=== PATIENT | male | born 1980 | race Caucasian/White ===

== ENCOUNTER 2017-09-01 19:12 | Emergency (ER) ==
[2017-09-01 19:16] VITALS: BP 164/96; TEMP 98.4; BMI 25.8
--- NOTE | 2017-09-01 19:59 | ED.PDOC ---
General ED Provider: Dr. JAVY CASTILLO-ER Chief Complaint: Respiratory Complaint Stated Complaint: delano had a cough and fever for 2 dasys Time Seen by Physician: 19:15 Mode of Arrival: Walk-In Information Source: Patient Exam Limitations: No limitations Nursing and Triage Documentation Reviewed and Agree: Yes Reviewed sepsis parameters & appropriate labs ordered?: Yes System Inflammatory Response Syndrome: Not Applicable Sepsis Protocol: For patient's 13 years and over: Temp is 96.8 and below OR 101 and greater Pulse >90 BPM Resp >20/minute Acutely Altered Mental Status Are patient's symptoms suggestive of a new infection, such as: -Pneumonia -Skin, Soft Tissue -Endocarditis -UTI -Bone, Joint Infection -Implantable Device -Acute Abdominal Infection -Wound Infection -Meningitis -Blood Stream Catheter Infection -Unknown Respiratory Complaint Exam - Respiratory Complaint/Exam Onset/Duration: 2 days Symptoms Are: Still present Timing: Intermittent Initial Severity: Mild Current Severity: Mild Location: Nose, Chest Character: Reports: Non-productive cough Aggravating: Reports: URI Alleviating: Reports: None Associated Signs and Symptoms: Reports: Fever, URI, Nasal congestion. Denies: Rapid breathing, Dyspnea, Chills, Chest pain, Pleuritic chest pain, Wheezing, Hemoptysis, Calf pain, Calf swelling, Edema, Hoarseness, Sinus discomfort, Vomiting, Sore throat, Weight loss, Decreased oral intake, Increased thirst, Increased appetite, Increased urination History of Healthcare-Acquired Pneumonia: No Related Surgical History: Reports: None Respiratory Distress: None Inadequate Respiratory Effort: No Dysphagia Present: No Stridor Present: No JVD Present: No Accessory Muscle Use: No Retractions: Not Present Diminished Breath Sounds: No Sinus Tenderness: None Differential Diagnoses: URI, Influenza Review of Systems - Review Of Systems Constitutional: Reports: Fever, Weakness Eyes: Reports: No symptoms Ears, Nose, Mouth, Throat: Reports: No symptoms Respiratory: Reports: Cough Cardiac: Reports: No symptoms GI: Reports: No symptoms : Reports: No symptoms Musculoskeletal: Reports: No symptoms Skin: Reports: No symptoms Neurological: Reports: No symptoms Endocrine: Reports: No symptoms Hematologic/Lymphatic: Reports: No symptoms All Other Systems: Reviewed and Negative Past Medical History - Past Medical History Previously Healthy: No Endocrine: Reports: None Cardiovascular: Reports: None Respiratory: Reports: None Hematological: Reports: None Gastrointestinal: Reports: None Genitourinary: Reports: None Neuro/Psych: Reports: None Musculoskeletal: Reports: None Cancer: Reports: None - Surgical History General Surgical History: Reports: Orthopedic (ROTATOR CUFF SURGERY) - Family History Family History: Reports: None - Social History Smoking Status: Current some day smoker Hx Substance Use: No Alcohol Screening: None - Immunizations Tetanus Shot up to Date: Yes Physical Exam - Physical Exam Appearance: Well-appearing, No pain distress, Well-nourished Eyes: SANDRA, EOMI, Conjunctiva clear ENT: Ears normal, Nose normal, Oropharynx normal Neck: Supple Respiratory: Rhonchi Cardiovascular: RRR GI/: Soft, Nontender, No masses, Bowel sounds normal, No Organomegaly Musculoskeletal: Normal strength, ROM intact, No edema, No calf tenderness Skin: Warm, Dry, Normal color Neurological: Sensation intact, Motor intact, Reflexes intact, Cranial nerves intact, Alert, Oriented Psychiatric: Affect appropriate, Mood appropriate Critical Care Note - Critical Care Note Total Time (mins): 0 Course - Course Orders, Labs, Meds: Lab Review 09/01/17 19:20 Influenza A (Rapid) Negative by naat Influenza B (Rapid) Negative by naat Orders Category Date Time Status FLU A/B MOLECULAR Stat LAB 09/01/17 19:20 Completed MOLECULAR GROUP A STREP Stat LAB 09/01/17 19:20 Completed Vital Signs: Temp Pulse Resp BP Pulse Ox 09/01/17 19:13 98.4 F 86 16 164/96 H 98 Departure - Departure Time of Disposition: 19:59 Disposition: HOME SELF-CARE Discharge Problem: Bronchitis Instructions: Acute Bronchitis (ED) Condition: Good Pt referred to PMD for follow-up: Yes IPMP verified?: No Additional Instructions: higinio trevino 200mg tid prn cough 30--fluids--temp control --recheck in 72hrs if not better--stop smoking Allergies/Adverse Reactions: Allergies cephalexin monohydrate [From Keflex] Adverse Reaction (Verified 09/01/17 19:22) Penicillins Adverse Reaction (Verified 09/01/17 19:22) Disposition Discussed With: Patient, Family
== END 2017-09-01 20:05 | disposition home or self-care (01) ==
LOC: ED 19:12
DX: J40 Bronchitis, not specified as acute or chronic (principal); F17.210 Nicotine dependence, cigarettes, uncomplicated
CPT/HCPCS: 87502; 87651; 99282

== ENCOUNTER 2017-10-27 19:00 | Emergency (ER) ==
[2017-10-27 19:00] VITALS: BMI 25.8
[2017-10-27 19:05] VITALS: TEMP 97.6
--- NOTE | 2017-10-27 19:10 | ED.PDOC ---
General ED Provider: Dr. JAVY CASTILLO-ER Chief Complaint: Non-specific Complaint Stated Complaint: delano got this place on my butt--its draining Time Seen by Physician: 19:08 Mode of Arrival: Walk-In Information Source: Patient Exam Limitations: No limitations Nursing and Triage Documentation Reviewed and Agree: Yes Reviewed sepsis parameters & appropriate labs ordered?: Yes System Inflammatory Response Syndrome: Not Applicable Sepsis Protocol: For patient's 13 years and over: Temp is 96.8 and below OR 101 and greater Pulse >90 BPM Resp >20/minute Acutely Altered Mental Status Are patient's symptoms suggestive of a new infection, such as: -Pneumonia -Skin, Soft Tissue -Endocarditis -UTI -Bone, Joint Infection -Implantable Device -Acute Abdominal Infection -Wound Infection -Meningitis -Blood Stream Catheter Infection -Unknown Skin Complaint Exam - Skin Rash/Itching Complaint/Exam Onset/Duration: 3 weeks Symptoms Are: Still present Initial Severity: Mild Current Severity: Mild Location: left buttock Aggravating: Reports: None Alleviating: Reports: None Associated Signs and Symptoms: Denies: Difficulty breathing, Fever, Chills Skin Findings: Present: Papules Differential Diagnoses: Impetigo Review of Systems - Review Of Systems Constitutional: Reports: No symptoms Eyes: Reports: No symptoms Ears, Nose, Mouth, Throat: Reports: No symptoms Respiratory: Reports: No symptoms Cardiac: Reports: No symptoms GI: Reports: No symptoms : Reports: No symptoms Musculoskeletal: Reports: No symptoms Skin: Reports: No symptoms Neurological: Reports: No symptoms Endocrine: Reports: No symptoms Hematologic/Lymphatic: Reports: No symptoms All Other Systems: Reviewed and Negative Past Medical History - Past Medical History Previously Healthy: No Endocrine: Reports: None Cardiovascular: Reports: None Respiratory: Reports: None Hematological: Reports: None Gastrointestinal: Reports: None Genitourinary: Reports: None Neuro/Psych: Reports: None Musculoskeletal: Reports: None Cancer: Reports: None - Surgical History General Surgical History: Reports: Orthopedic (ROTATOR CUFF SURGERY) - Family History Family History: Reports: None - Social History Smoking Status: Current every day smoker, Heavy tobacco smoker Hx Substance Use: No Alcohol Screening: Occasionally - Immunizations Tetanus Shot up to Date: Yes Physical Exam - Physical Exam Appearance: Well-appearing, No pain distress, Well-nourished Eyes: SANDRA, EOMI, Conjunctiva clear ENT: Ears normal, Nose normal, Oropharynx normal Neck: Supple Respiratory: Airway patent Cardiovascular: RRR, Pulses normal, No rub, No murmur GI/: Soft, Nontender, No masses, Bowel sounds normal, No Organomegaly Musculoskeletal: Normal strength, ROM intact, No edema, No calf tenderness Skin: Warm, Dry (noted erythematous lesion measuring 1.5cm left buttock) Neurological: Sensation intact, Motor intact, Reflexes intact, Cranial nerves intact, Alert, Oriented Psychiatric: Affect appropriate, Mood appropriate Critical Care Note - Critical Care Note Total Time (mins): 0 Course - Course Vital Signs: Temp Pulse Resp BP Pulse Ox 10/27/17 19:01 97.6 F 86 20 164/108 H 98 Departure - Departure Time of Disposition: 19:10 Disposition: HOME SELF-CARE Discharge Problem: Impetigo Instructions: Impetigo (ED) Condition: Good Pt referred to PMD for follow-up: Yes IPMP verified?: No Additional Instructions: minocin 100mg bid x 10 days #20--wash with soap and water--recheck with your pcp in 72hrs Allergies/Adverse Reactions: Allergies cephalexin monohydrate [From Keflex] Adverse Reaction (Verified 09/01/17 19:22) Penicillins Adverse Reaction (Verified 09/01/17 19:22) Home Medications: Ambulatory Orders 1 [No Reported Medications] 10/27/17 Disposition Discussed With: Patient
[2017-10-27 19:22] VITALS: BP 146/98
== END 2017-10-27 19:15 | disposition home or self-care (01) ==
LOC: ED 19:00
DX: L01.00 Impetigo, unspecified (principal); F17.210 Nicotine dependence, cigarettes, uncomplicated
CPT/HCPCS: 99282

== ENCOUNTER 2024-07-27 13:53 | Observation (INO) ==
--- NOTE | 2024-07-27 14:21 | ED.PDOC ---
General ED Provider: Dr. NADIR KRAMER MD Chief Complaint: Foot Pain/Injury Stated Complaint: Patient is a 44-year-old male that reported to the emergency department with left leg swelling. Patient was seen here on 07/24/2024 3 days ago for similar symptoms. Patient was diagnosed with cellulitis and given outpatient p.o. antibiotics. Patient stated that since that time he is continue to have increase in pain and swelling in the left lower extremity due to the cellulitis. Patient stated that the cellulitis started in his foot and ankle and has spread up to right below his knee. Patient stated that he is taken his medications as prescribed by the ER physician however he has not gotten any better. Patient has denied any fever. Patient denied any discharge from the left lower extremity cellulitis. Patient rates his pain currently at a 6 out of 10 when he touches his left lower extremity and 1 out of 10 whenever he is sitting still and not touching his left lower extremity. Patient states that nothing has made his symptoms better. Patient denies any other acute symptoms not currently mentioned in this HPI. Patient denies going to a doctor so he states that he has no past medical history. Patient's vital signs are currently stable. Patient's GCS is 15. Time Seen by Provider: 07/27/24 14:00 Mode of Arrival: Walk-In Information Source: Patient Exam Limitations: No limitations Nursing and Triage Documentation Reviewed and Agree: Yes What is Opioid Naive?: *Opioid Naive implies the patient is not already taking opioids or not chronically receiving opioids on a daily basis. *PRN dosing is not "usually" associated with tolerance. *Patients are at higher risk of over-sedation and aspiration. What is Opioid Tolerant?: *Opioid Tolerance implies less than the expected response to an opioid. *Acquired tolerance is defined by the patient taking 60mg of oral morphine daily (or equianalgesic dose of another opioid) for 1 week or more. *Often associated with chronic pain. *May take more than usual dose to achieve desired pain control. Review of Systems Review Of Systems Constitutional: Reports No symptoms Skin: Reports Other (Infection of skin of left lower extremity.) All Other Systems: Reviewed and Negative [facility] Family History Grandfather/Grandmother No problems noted. Mother No problems noted. Other Kidney failure Obesity Siamese twin Social History Smoking and tobacco status: Current every day smoker Surgical History History of musculoskeletal system surgery left shoulder Z98.890 - Other specified postprocedural states (ICD-10) Physical Exam Physical Exam Appearance: Reports Well-appearing Ill-appearing: None Pain Distress: None Eyes: Reports SANDRA, EOMI and Conjunctiva clear ENT: Reports Nose normal and Oropharynx normal Neck: Supple Respiratory: Reports Airway patent, Breath sounds clear and Breath sounds equal Cardiovascular: Reports RRR, Pulses normal, No rub and No murmur GI/: Reports Soft, Nontender, No masses and Bowel sounds normal Musculoskeletal: Reports Normal strength and Edema (Left lower leg, with erythema on the anterior part of the left leg and foot, 2+ pedal edema. The erythema extends from the foot up to approximately 1 cm below the knee. The erythema is in the anterior portion of the left lower extremity. Patient denies any calf pain. Homans' sign negative.) Neurological: Reports Sensation intact, Motor intact, Alert and Oriented Psychiatric: Reports Affect appropriate Course Course 07/27/24 14:29 07/27/24 14:29 Orders, Labs, Meds: Lab Review 07/27/24 14:29 WBC 12.14 H RBC 5.73 Hgb 17.0 Hct 51.5 MCV 89.9 MCH 29.7 MCHC 33.0 RDW Coeff of Mark 13.2 Plt Count 239 Immature Gran % (Auto) 0.4 Neut % (Auto) 62.3 Lymph % (Auto) 22.6 Jefferson % (Auto) 10.4 H Eos % (Auto) 3.9 Baso % (Auto) 0.4 Neut # (Auto) 7.6 H Lymph # (Auto) 2.7 Jefferson # (Auto) 1.3 Eos # (Auto) 0.5 Baso # (Auto) 0.1 Immature Gran # (Auto) 0.1 Sodium 133.6 L Potassium 3.39 L Chloride 98.4 Carbon Dioxide 25.9 Anion Gap 12.69 BUN 10.9 Creatinine 0.94 Estimated GFR (MDRD) 88.00 BUN/Creatinine Ratio 11.59 Glucose 118.9 H Lactic Acid 1.52 Calcium 9.26 Total Bilirubin 0.89 AST 27.1 ALT 22.6 Alkaline Phosphatase 110.6 Total Protein 7.56 Albumin 4.23 Globulin 3.33 Albumin/Globulin Ratio 1.27 Orders Category Date Time Status CBC W/ AUTO DIFF Stat LAB 07/27/24 14:29 Completed CMP [COMPREHENSIVE METABOLIC PANEL] Stat LAB 07/27/24 14:29 Completed COVID [SARS COV-2 RNA RAPID TANGELA] Stat LAB 07/27/24 15:18 Received LACTIC ACID Stat LAB 07/27/24 14:29 Completed Clindamycin Phosphate/D5w [Cleocin 600 mg/50 ml D5w] Meds 07/27/24 14:30 Active 600 mg in 50 ml IV Q8HR Vancomycin/Water For Inj (Peg) [Vancomycin 1 Gram/200 Meds 07/27/24 14:19 Discontinued ml Premix] 1 gm in 200 ml IV ONCE Medications Generic Name Dose Route Start Last Admin Trade Name Freq PRN Reason Stop Dose Admin Clindamycin Phosphate 600 mg in 50 mls @ 75 mls/hr 07/27/24 14:30 Cleocin 600 Mg/50 Ml D5w IV 07/30/24 14:29 Q8HR DORI Discontinued Medications Generic Name Dose Route Start Last Admin Trade Name Freq PRN Reason Stop Dose Admin VANCOMYCIN/WATER FOR INJ (PEG) 1 gm in 200 mls @ 200 mls/hr 07/27/24 14:19 07/27/24 15:13 Vancomycin 1 Gram/200 Ml Premix IV 07/27/24 15:18 200 mls/hr ONCE ONE Administration Vital Signs: Temp Pulse Resp BP Pulse Ox 07/27/24 14:02 97.5 F L 100 20 162/120 H 99 Discharge Plan Discharge Patient Disposition: PLACED OBSERVATION Discharge Problem: Cellulitis of left lower extremity Did you review [place] [employer] for ALL controlled substances?: Not Applicable ED Provider: NADIR KRAMER Condition: Stable Physician Progress Note: Patient is a 44-year-old male that reported to the emergency department with left leg swelling. Patient was seen here on 07/24/2024 3 days ago for similar symptoms. Patient was diagnosed with cellulitis and given outpatient p.o. antibiotics. Patient stated that since that time he is continue to have increase in pain and swelling in the left lower extremity due to the cellulitis. Patient stated that the cellulitis started in his foot and ankle and has spread up to right below his knee. Patient stated that he is taken his medications as prescribed by the ER physician however he has not gotten any better. Patient has denied any fever. Patient denied any discharge from the left lower extremity cellulitis. Patient rates his pain currently at a 6 out of 10 when he touches his left lower extremity and 1 out of 10 whenever he is sitting still and not touching his left lower extremity. Patient states that nothing has made his symptoms better. Patient denies any other acute symptoms not currently mentioned in this HPI. Patient denies going to a doctor so he states that he has no past medical history. Patient's vital signs are currently stable. Patient's GCS is 15. -Patient just had a CT of the left lower extremity on 07/24/2024. CT showed: Soft tissue swelling throughout the calf through the ankle and foot is nonspecific but in keeping with history of cellulitis as detailed above. No deep soft tissue ulcer, drainable fluid collection or deep soft tissue gas at this time. Patient also had an ultrasound of the left lower extremity. Ultrasound showed - No deep venous thrombosis in the left lower extremity. No superficial thrombophlebitis in the left lower extremity. -Will not repeat the ultrasound or CT at this time. Will order CBC, CMP, and lactate. -Will go ahead and treat the patient's left leg cellulitis with IV vancomycin 1 g and IV clindamycin 600 mg. -Patient has a 12,000 white count. Patient also has hyponatremia and hypokalemia. -[id number]: Spoke to hospitalist at [facility] who is agreed to admit the patient for cellulitis of the left lower extremity since he has failed outpatient p.o. antibiotic treatment. Patient's vital signs are stable at time of admission for observation.
[2024-07-27 14:33] LABS: BASOPHILS # (AUTO) 0.1 K/uL (0-0.2); BASOPHILS % (AUTO) 0.4 % (0.0-3.0); EOSINOPHILS # (AUTO) 0.5 K/ul (0.0-0.7); EOSINOPHILS % (AUTO) 3.9 % (0.0-7.0); HEMATOCRIT 51.5 % (42.0-52.0); IMMATURE GRANULOCYTE # (AUTO) 0.1 (0.0-1.0); IMMATURE GRANULOCYTE % (AUTO) 0.4 % (0.0-5.0); LYMPHOCYTES # (AUTO) 2.7 K/uL (0.60-3.4); LYMPHOCYTES % (AUTO) 22.6 (10.0-50.0); MEAN CORPUSCULAR HEMOGLOBIN 29.7 pg (27.0-31.0); MEAN CORPUSCULAR VOLUME 89.9 fl (80.0-94.0); MONOCYTES # (AUTO) 1.3 K/uL (0.4-2.0); MONOCYTES % (AUTO) 10.4 (0-10); NEUTROPHILS # (AUTO) 7.6 K/ul (2.0-6.9); NEUTROPHILS % (AUTO) 62.3 % (42.2-75.2); PLATELET COUNT 239 10^3/uL (140-440); RDW COEFFICIENT OF VARIATION 13.2 % (11.6-14.8); RED BLOOD COUNT 5.73 10^6/ul (4.70-6.10); WHITE BLOOD COUNT 12.14 K/ul (4.2-10.2)
[2024-07-27 14:46] LABS: ALANINE AMINOTRANSFERASE 22.6 U/L (0-50); ALBUMIN 4.23 g/dL (3.5-5.0); ALKALINE PHOSPHATASE 110.6 U/L (38-126); ASPARTATE AMINO TRANSFERASE 27.1 U/L (17-59); BILIRUBIN,TOTAL 0.89 mg/dL (0.2-1.3); BLOOD UREA NITROGEN 10.9 mg/dL (9-20); CALCIUM 9.26 mg/dL (8.4-10.2); CARBON DIOXIDE 25.9 mmol/L (22-30.0); CHLORIDE 98.4 mmol/L (98-107); CREATININE 0.94 mg/dL (0.60-1.10); GLUCOSE 118.9 mg/dL (74-106); POTASSIUM 3.39 mmol/L (3.5-5.1); SODIUM 133.6 mmol/L (134.5-145); TOTAL PROTEIN 7.56 g/dL (6.3-8.2)
[2024-07-27] MEDS: VANCOMYCIN 1 GRAM/200 ML PREMIX 1 GM/200 ML BAG IV ONE (15:13)
[2024-07-27 15:40] LABS: SARS COV-2 RNA RAPID NAAT NEGATIVE (NEGATIVE)
--- NOTE | 2024-07-27 15:43 | PCM ---
Date of Service Date Seen by Provider: 07/27/24 Time Seen by Provider: 15:00 Admit Day/Time Admission Date: 07/27/24 Admission Time: 15:34 Reason for Admission Chief Complaint: CELLULITIS LLE, HYPONATREMIA Hospital Provider Hospital Provider: Linwood Pascual PA-C, [facility] History of Present Illness History of Present Illness: Patient is a 44 year old with pmhx of hypertension who presents for worsening redness and swelling of left lower ext. Patient was seen on 07/24 in the ER for same thing. He had a CT consistent with cellulitis, and US showed no DVT. He was given oral antibiotics which he took. He states it was feeling better but it gets worse if he gets up on it. He noticed redness and pain worsened today. In ER had labs with unremarkable findings. He was given vanc and clinda. He does have hx in the past. No open wounds currently. No hx of diabetes. Patient admitted to med surg for failed outpatient antibiotics for cellulitis. Case Discussed With Case Discussed With: Patient's case was discussed with the ER Physicians, Dr. Schroeder. [facility] Medical History Rotator cuff arthropathy of left shoulder M12.812 - Other specific arthropathies, not elsewhere classified, left shoulder (ICD-10) Surgical History History of musculoskeletal system surgery left shoulder Z98.890 - Other specified postprocedural states (ICD-10) Family History Grandfather/Grandmother Cancer Mother No problems noted. Other Kidney failure Obesity Siamese twin Social History Smoking and tobacco status: Current every day smoker Alcohol intake: former Substance use type: marijuana Allergies Allergies Allergy/AdvReac Type Severity Reaction Status Date / Time Penicillins AdvReac Severe Swelling Verified 07/27/24 14:11 cephalexin monohydrate (From AdvReac Unknown Verified 07/27/24 14:11 Keflex) Current Medications Home Medications albuterol sulfate 90 mcg/actuation aerosol inhaler (Ventolin HFA) 2 puff inhalation QID PRN shortness of breath or wheezing #8.5 grams 01/20/24 [Rx Confirmed 07/27/24 Last Taken Unknown] ciprofloxacin HCl 500 mg tablet 500 mg PO Q8H #21 tabs 07/24/24 [Rx Confirmed 1 09/27/23 Last Taken 07/27/24] doxycycline hyclate 100 mg capsule 100 mg PO BID #20 caps 07/24/24 [Rx Confirmed 07/27/24 Last Taken 07/27/24] ondansetron 4 mg disintegrating tablet 4 mg PO Q8H PRN nausea and vomiting #30 tabs 07/24/24 [Rx Confirmed 07/27/24 Last Taken Unknown] amlodipine 5 mg tablet 5 mg PO QAM 07/27/24 [History Confirmed 07/27/24 Last Taken Unknown] lisinopril 20 mg-hydrochlorothiazide 25 mg tablet 1 tab PO DAILY 07/27/24 [History Confirmed 07/27/24 Last Taken Unknown] metoprolol succinate 25 mg tablet,extended release 24 hr 25 mg PO BEDTIME 07/27/24 [History Confirmed 07/27/24 Last Taken Unknown] Home Acetaminophen (Acetaminophen 325 Mg Tablet) 650 mg PO Q4H PRN PRN Reason: Mild Pain Hydrocodone Bitart/Acetaminophen (Hydrocodone Bit/Acetaminophen 5/325 Mg Tablet) 1 tab PO Q6HR PRN PRN Reason: MODERATE PAIN Last Admin: 07/27/24 16:13 Dose: 1 tab VANCOMYCIN/WATER FOR INJ (PEG) (Vancomycin 1.25 Gm/250 Ml Bag) 1.25 gm in 250 mls @ 250 mls/hr IV Q8HR [facility] Stop: 07/31/24 13:29 Last Admin: 07/28/24 13:28 Dose: 250 mls/hr Lisinopril (Lisinopril 10 Mg Tablet) 20 mg PO DAILY [facility] Last Admin: 07/28/24 09:06 Dose: 20 mg Discontinued Medications Clindamycin Phosphate (Cleocin 600 Mg/50 Ml D5w) 600 mg in 50 mls @ 75 mls/hr IV Q8HR [facility] Stop: 07/30/24 14:29 Last Admin: 07/27/24 16:20 Dose: 75 mls/hr VANCOMYCIN/WATER FOR INJ (PEG) (Vancomycin 1 Gram/200 Ml Premix) 1 gm in 200 mls @ 200 mls/hr IV ONCE ONE Stop: 07/27/24 15:18 Last Admin: 07/27/24 15:13 Dose: 200 mls/hr VANCOMYCIN/WATER FOR INJ (PEG) (Vancomycin 1 Gram/200 Ml Premix) 1 gm in 200 mls @ 200 mls/hr IV Q8HR [facility] Stop: 07/30/24 20:59 Last Admin: 07/28/24 05:02 Dose: 200 mls/hr Potassium Chloride (Potassium Chloride 20 Meq Tab) 40 meq PO ONCE ONE Stop: 07/28/24 08:52 Last Admin: 07/28/24 09:06 Dose: 40 meq Opioid Naive vs. Tolerant Does Patient Take Opioids?: No Is Patient Opioid Naive?: Yes What is Opioid Naive?: *Opioid Naive implies the patient is not already taking opioids or not chronically receiving opioids on a daily basis. *PRN dosing is not "usually" associated with tolerance. *Patients are at higher risk of over-sedation and aspiration. Is Patient Opioid Tolerant?: No What is Opioid Tolerant?: *Opioid Tolerance implies less than the expected response to an opioid. *Acquired tolerance is defined by the patient taking 60mg of oral morphine daily (or equianalgesic dose of another opioid) for 1 week or more. *Often associated with chronic pain. *May take more than usual dose to achieve desired pain control. Review of Systems Constitutional: Denies Fever, Fatigue or Weakness Head: Reports Normocephalic and Atraumatic Cardiovascular: Reports Edema (+left foot swelling ); Denies Chest pain Respiratory: Denies Cough or Shortness of air Gastrointestinal: Denies Nausea, Vomiting, Diarrhea or Abdominal pain Genitourinary: Denies Dysuria or Hematuria Dermatologic: Reports Rashes Neurological: Denies Headache, Dizziness or Syncope Physical examination Most Recent Vital Signs: Most Recent Vital Signs Temperature 97.5 F L 07/27/24 14:02 Temperature Source Oral 07/27/24 14:02 Pulse Rate 100 07/27/24 14:02 Respiratory Rate 20 07/27/24 14:02 Blood Pressure 162/120 H 07/27/24 14:02 O2 Sat by Pulse Oximetry 99 07/27/24 14:02 Height 5 ft 9 in 07/27/24 14:02 Weight 74 kg 07/27/24 14:02 Appearance: Positive No Apparent Distress and Alert and Oriented x3 Skin: Positive Rashes (+erythema of left foot extending from distal dorsal foot to ankle, with streaking noted up anterior leg. Area is warm, edematous, and painful to touch. Pulses and sensation intact. ) HEENT: Positive Normocephalic and Atraumatic Neck: Positive Supple and Midline Trachea Chest/Lungs: Positive Clear to Auscultation Bilaterally; Negative Rales, Rhonci or Wheezes Heart: Positive RRR GI/: Positive Soft, Nontender, Bowel Sounds Normal and No Distention Neurological: Positive Cranial Nerves Intact, Alert, Oriented and Muscle Strength 5/5 in Upper and Lower Extremities Bilaterally Psychiatric: Positive Oriented x4, Appropriate Mood and Appropriate Affect Labs This Visit Labs This Visit: Labs This Visit 07/27/24 07/27/24 14:29 15:18 WBC 12.14 H RBC 5.73 Hgb 17.0 Hct 51.5 MCV 89.9 MCH 29.7 MCHC 33.0 RDW Coeff of Mark 13.2 Plt Count 239 Immature Gran % (Auto) 0.4 Neut % (Auto) 62.3 Lymph % (Auto) 22.6 [place] % (Auto) 10.4 H Eos % (Auto) 3.9 Baso % (Auto) 0.4 Neut # (Auto) 7.6 H Lymph # (Auto) 2.7 [place] # (Auto) 1.3 Eos # (Auto) 0.5 Baso # (Auto) 0.1 Immature Gran # (Auto) 0.1 Sodium 133.6 L Potassium 3.39 L Chloride 98.4 Carbon Dioxide 25.9 Anion Gap 12.69 BUN 10.9 Creatinine 0.94 Estimated GFR (MDRD) 88.00 BUN/Creatinine Ratio 11.59 Glucose 118.9 H Lactic Acid 1.52 Calcium 9.26 Total Bilirubin 0.89 AST 27.1 ALT 22.6 Alkaline Phosphatase 110.6 Total Protein 7.56 Albumin 4.23 Globulin 3.33 Albumin/Globulin Ratio 1.27 SARS CoV-2 RNA Rapid TANGELA Negative Review Statement Review Statement: I have independently reviewed and interpreted the labs/EKGs/imaging that were ordered by the ER provider. I have reviewed all outside records that are available currently in our EMR including imaging/notes/labs from previous visits. Plan Plan: 1. Acute cellulitis of left lower extremity - Failed outpatient abx. Recent MRSA positive. Cont vanc, pharmacy to dose. Pain control prn. Elevate. Recent CT and US of left lower ext. 2. Hypertension - Has not been taking medications DVT Prophylaxis: Ambulation Time Spent: Greater than 80 minutes spent with patient, 50% of the time spent with this patient was devoted to counseling and coordination of care. [facility] minutes spent discussing advance care planning. Admit to: Obs Discussed Plan of Care with Dr. Devante Khoury. Medications Medication Orders: Medications Ordered Category Date Time Status Clindamycin Phosphate/D5w [Cleocin 600 mg/50 ml D5w] Meds 07/27/24 14:30 Active 600 mg in 50 ml IV Q8HR
[2024-07-27] MEDS ORDERED: TYLENOL PO PRN (15:49)
[2024-07-27] MEDS: NORCO 5-325 PO PRN (16:13)
[2024-07-27] MEDS: CLEOCIN 600 MG/50 ML D5W 600 MG/50 ML BAG IV SCH (16:20)
[2024-07-27 16:34] VITALS: BMI 23.5
[2024-07-27] MEDS: ZESTRIL PO SCH (18:47)
[2024-07-27] MEDS: VANCOMYCIN 1 GRAM/200 ML PREMIX 1 GM/200 ML BAG IV SCH (20:15)
[2024-07-28 06:07] LABS: BASOPHILS % (AUTO) 0.4 % (0.0-3.0); EOSINOPHILS # (AUTO) 0.7 K/ul (0.0-0.7); EOSINOPHILS % (AUTO) 6.7 % (0.0-7.0); HEMATOCRIT 47.3 % (42.0-52.0); HEMOGLOBIN 15.5 g/dl (14.0-18.0); IMMATURE GRANULOCYTE % (AUTO) 0.2 % (0.0-5.0); LYMPHOCYTES # (AUTO) 2.7 K/uL (0.60-3.4); LYMPHOCYTES % (AUTO) 27.2 (10.0-50.0); MEAN CORPUSCULAR HEMOGLOBIN 29.9 pg (27.0-31.0); MEAN CORPUSCULAR HGB CONC 32.8 (31.8-35.4); MEAN CORPUSCULAR VOLUME 91.3 fl (80.0-94.0); MONOCYTES # (AUTO) 0.9 K/uL (0.4-2.0); NEUTROPHILS # (AUTO) 5.7 K/ul (2.0-6.9); NEUTROPHILS % (AUTO) 56.5 % (42.2-75.2); PLATELET COUNT 236 10^3/uL (140-440); RDW COEFFICIENT OF VARIATION 13.2 % (11.6-14.8); RED BLOOD COUNT 5.18 10^6/ul (4.70-6.10); WHITE BLOOD COUNT 10.03 K/ul (4.2-10.2)
[2024-07-28 06:21] LABS: ALBUMIN 3.67 g/dL (3.5-5.0); ALKALINE PHOSPHATASE 95.3 U/L (38-126); ASPARTATE AMINO TRANSFERASE 29.6 U/L (17-59); BILIRUBIN,TOTAL 0.79 mg/dL (0.2-1.3); BLOOD UREA NITROGEN 11.5 mg/dL (9-20); CALCIUM 8.82 mg/dL (8.4-10.2); CARBON DIOXIDE 21.2 mmol/L (22-30.0); CHLORIDE 102.6 mmol/L (98-107); CREATININE 0.78 mg/dL (0.60-1.10); GLUCOSE 163.8 mg/dL (74-106); POTASSIUM 3.13 mmol/L (3.5-5.1); SODIUM 133.3 mmol/L (134.5-145); TOTAL PROTEIN 6.76 g/dL (6.3-8.2)
[2024-07-28] MEDS: K-DUR PO ONE (09:06)
[2024-07-28] MEDS: VANCOMYCIN 1.25 GM/250 ML BAG 1.25 GM/250 ML BAG IV SCH (13:28)
--- NOTE | 2024-07-28 15:42 | PCM.PROG ---
Date/Time Seen Date Seen by Provider: 07/28/24 Time Seen by Provider: 09:10 Provider Provider: LINWOOD PASCUAL PA-C, [facility] Chief Complaint Chief Complaint: CELLULITIS LLE, HYPONATREMIA Subjective Subjective: Patient states pain and swelling is improved, however still continues to have a lot of pain with trying to ambulate. Objective Appearance: Positive No Apparent Distress and Alert and Oriented x3 Chest/Lungs: Positive Clear to Auscultation Bilaterally; Negative Rales, Rhonci or Wheezes Heart: Positive RRR GI/: Positive Soft, Nontender, Bowel Sounds Normal and No Distention Neurological: Positive Cranial Nerves Intact, Alert, Oriented and Muscle Strength 5/5 in Upper and Lower Extremities Bilaterally Additional Findings: Left foot - +erythema of left foot extending from distal dorsal foot to ankle, with streaking noted up anterior leg. Area is warm, edematous. Pulses and sensation intact. Not as painful to palpation today Vital Signs Vital Signs: Vital Signs: Last 24 Hours 07/27/24 15:45 07/27/24 16:18 07/27/24 16:18 Temperature 99.3 F Temperature Source Temporal Artery Scan Pulse Rate 96 92 Respiratory Rate 18 16 Blood Pressure 164/105 H Blood Pressure Mean Blood Pressure Left Arm 171/122 Blood Pressure Location Blood Pressure Position Supine O2 Sat by Pulse Oximetry 98 98 Oxygen Delivery Method Room Air Room Air Height 5 ft 9.5 in Weight 73.2 kg 07/27/24 18:00 07/27/24 20:00 07/27/24 20:58 Temperature 98.3 F 98.3 F Temperature Source Tympanic Temporal Artery Scan Pulse Rate 86 86 Respiratory Rate 16 20 Blood Pressure 170/110 H 127/84 Blood Pressure Mean 130 98 Blood Pressure Left Arm Blood Pressure Location Left Arm Left Arm Blood Pressure Position Sitting Supine O2 Sat by Pulse Oximetry 94 L 97 Oxygen Delivery Method Room Air Room Air Room Air Height Weight 07/28/24 05:19 07/28/24 10:00 Temperature 98.6 F 97.9 F Temperature Source Temporal Artery Scan Pulse Rate 71 63 Respiratory Rate 16 18 Blood Pressure 117/81 144/99 H Blood Pressure Mean 93 114 Blood Pressure Left Arm Blood Pressure Location Right Arm Blood Pressure Position O2 Sat by Pulse Oximetry 95 98 Oxygen Delivery Method Room Air Room Air Height Weight Lab Results Lab Results: Lab Results: Last 24 Hours 07/28/24 07/28/24 12:32 06:01 WBC 10.03 RBC 5.18 Hgb 15.5 Hct 47.3 MCV 91.3 MCH 29.9 MCHC 32.8 RDW Coeff of Mark 13.2 Plt Count 236 Immature Gran % (Auto) 0.2 Neut % (Auto) 56.5 Lymph % (Auto) 27.2 Craig % (Auto) 9.0 Eos % (Auto) 6.7 Baso % (Auto) 0.4 Neut # (Auto) 5.7 Lymph # (Auto) 2.7 Craig # (Auto) 0.9 Eos # (Auto) 0.7 Baso # (Auto) 0.0 Immature Gran # (Auto) 0.0 Sodium 133.3 L Potassium 3.13 L Chloride 102.6 Carbon Dioxide 21.2 L Anion Gap 12.63 BUN 11.5 Creatinine 0.78 Estimated GFR (MDRD) 109.00 BUN/Creatinine Ratio 14.74 Glucose 163.8 H Hemoglobin A1c 5.21 Calcium 8.82 Total Bilirubin 0.79 AST 29.6 ALT 22.0 Alkaline Phosphatase 95.3 Total Protein 6.76 Albumin 3.67 Globulin 3.09 Albumin/Globulin Ratio 1.18 Procalcitonin < 0.05 Vancomycin Trough 8.578 L Additional Comments Additional Comments: I have independently reviewed and interpreted the labs/EKGs/imaging ordered during this hospital stay. I have reviewed outside records that are available in our EMR that pertain to medical stay including imaging/notes/labs from previous visits. Active Medications Active Medications: Medications Generic Name Dose Route Start Last Admin Trade Name Freq PRN Reason Stop Dose Admin Acetaminophen 650 mg 07/27/24 15:49 Acetaminophen 325 Mg Tablet PO Q4H PRN Mild Pain Hydrocodone Bitart/Acetaminophen 1 tab 07/27/24 15:49 07/27/24 16:13 Hydrocodone Bit/Acetaminophen 5/325 Mg Tablet PO 1 tab Q6HR PRN Administration MODERATE PAIN VANCOMYCIN/WATER FOR INJ (PEG) 1.25 gm in 250 mls @ 250 mls/hr 07/28/24 13:30 07/28/24 13:28 Vancomycin 1.25 Gm/250 Ml Bag IV 07/31/24 13:29 250 mls/hr Q8HR [facility] Administration Lisinopril 20 mg 07/27/24 18:30 07/28/24 09:06 Lisinopril 10 Mg Tablet PO 20 mg DAILY [facility] Administration Plan Plan: 1. Acute cellulitis of left lower extremity - Mildly improved. Failed outpatient abx. Recent MRSA positive. Cont vanc, pharmacy to dose. Pain control prn. Elevate. Recent CT and US of left lower ext. 2. Hypertension - Has not been taking medications 3. Hypokalemia - Replaced DVT: Ambulation Review Statement Review Statement: I have personally discussed and reviewed the patient's visit/currently labs/imaging/decision making with Dr. Khoury, my supervising attending. Greater that 50 minutes spent with patient, 50% of the time spent with this patient was devoted to counseling and coordination of care.
[2024-07-29 05:51] LABS: BASOPHILS % (AUTO) 0.1 % (0.0-3.0); EOSINOPHILS # (AUTO) 0.7 K/ul (0.0-0.7); EOSINOPHILS % (AUTO) 7.8 % (0.0-7.0); HEMOGLOBIN 15.7 g/dl (14.0-18.0); IMMATURE GRANULOCYTE % (AUTO) 0.2 % (0.0-5.0); LYMPHOCYTES # (AUTO) 2.8 K/uL (0.60-3.4); LYMPHOCYTES % (AUTO) 30.1 (10.0-50.0); MEAN CORPUSCULAR HEMOGLOBIN 29.5 pg (27.0-31.0); MEAN CORPUSCULAR VOLUME 92.1 fl (80.0-94.0); MONOCYTES % (AUTO) 11.4 (0-10); NEUTROPHILS # (AUTO) 4.6 K/ul (2.0-6.9); NEUTROPHILS % (AUTO) 50.4 % (42.2-75.2); PLATELET COUNT 262 10^3/uL (140-440); RDW COEFFICIENT OF VARIATION 12.9 % (11.6-14.8); RED BLOOD COUNT 5.32 10^6/ul (4.70-6.10); WHITE BLOOD COUNT 9.15 K/ul (4.2-10.2)
[2024-07-29 06:03] LABS: ALANINE AMINOTRANSFERASE 24.4 U/L (0-50); ALBUMIN 3.57 g/dL (3.5-5.0); ALKALINE PHOSPHATASE 101.8 U/L (38-126); ASPARTATE AMINO TRANSFERASE 28.2 U/L (17-59); BILIRUBIN,TOTAL 0.61 mg/dL (0.2-1.3); BLOOD UREA NITROGEN 8.8 mg/dL (9-20); CALCIUM 8.99 mg/dL (8.4-10.2); CARBON DIOXIDE 24.6 mmol/L (22-30.0); CHLORIDE 104.8 mmol/L (98-107); CREATININE 0.71 mg/dL (0.60-1.10); GLUCOSE 103.8 mg/dL (74-106); POTASSIUM 4.15 mmol/L (3.5-5.1); SODIUM 137.3 mmol/L (134.5-145); TOTAL PROTEIN 6.78 g/dL (6.3-8.2)
[2024-07-29] MEDS: ROCEPHIN 1 GM/50 ML D5W 1 GM/50 ML BAG IV SCH (10:19)
--- NOTE | 2024-07-29 11:09 | PCM.PROG ---
Date/Time Seen Date Seen by Provider: 07/29/24 Time Seen by Provider: 08:50 Provider Provider: LINWOOD PASCUAL PA-C, [facility] Chief Complaint Chief Complaint: CELLULITIS LLE, HYPONATREMIA Subjective Subjective: Patient's LLE appears improved when propped up. However patient states when he stands he has significant pain and erythema worsens. Swelling seems better today. No other complaints. Objective Appearance: Positive No Apparent Distress and Alert and Oriented x3 Chest/Lungs: Positive Clear to Auscultation Bilaterally; Negative Rales, Rhonci or Wheezes Heart: Positive RRR GI/: Positive Soft, Nontender, Bowel Sounds Normal and No Distention Neurological: Positive Cranial Nerves Intact, Alert, Oriented and Muscle Strength 5/5 in Upper and Lower Extremities Bilaterally Additional Findings: Left foot - +erythema of left foot extending from distal dorsal foot to ankle, with streaking noted up anterior leg. Appears improved today. Area is warm, edematous, this also is improved. Pulses and sensation intact. Not as painful to palpation today. Foot overall is warm, no purple discoloration, pulses normal. Vital Signs Vital Signs: Vital Signs: Last 24 Hours 07/28/24 14:00 07/28/24 18:00 07/28/24 20:00 Temperature 97.6 F 97.9 F Temperature Source Temporal Artery Scan Temporal Artery Scan Pulse Rate 59 L 64 Respiratory Rate 16 16 Blood Pressure 122/80 152/101 H Blood Pressure Mean 94 118 Blood Pressure Location Left Arm Right Arm Blood Pressure Position Supine O2 Sat by Pulse Oximetry 98 97 Oxygen Delivery Method Room Air Room Air Room Air 07/28/24 21:13 07/29/24 02:00 07/29/24 05:14 Temperature 98.0 F 97.5 F L Temperature Source Temporal Artery Scan Temporal Artery Scan Pulse Rate 65 71 Respiratory Rate 18 18 Blood Pressure 143/85 H 167/118 H Blood Pressure Mean 104 134 Blood Pressure Location Right Arm Left Arm Blood Pressure Position Supine Supine O2 Sat by Pulse Oximetry 97 96 Oxygen Delivery Method Room Air Room Air Room Air 07/29/24 08:00 07/29/24 10:00 Temperature 97.4 F L Temperature Source Temporal Artery Scan Pulse Rate 59 L Respiratory Rate 18 Blood Pressure 144/87 H Blood Pressure Mean 106 Blood Pressure Location Right Arm Blood Pressure Position Sitting O2 Sat by Pulse Oximetry 98 Oxygen Delivery Method Room Air Room Air Lab Results Lab Results: Lab Results: Last 24 Hours 07/29/24 07/28/24 05:16 12:32 WBC 9.15 RBC 5.32 Hgb 15.7 Hct 49.0 MCV 92.1 MCH 29.5 MCHC 32.0 RDW Coeff of Mark 12.9 Plt Count 262 Immature Gran % (Auto) 0.2 Neut % (Auto) 50.4 Lymph % (Auto) 30.1 [place] % (Auto) 11.4 H Eos % (Auto) 7.8 H Baso % (Auto) 0.1 Neut # (Auto) 4.6 Lymph # (Auto) 2.8 [place] # (Auto) 1.0 Eos # (Auto) 0.7 Baso # (Auto) 0.0 Immature Gran # (Auto) 0.0 Sodium 137.3 Potassium 4.15 Chloride 104.8 Carbon Dioxide 24.6 Anion Gap 12.05 BUN 8.8 L Creatinine 0.71 Estimated GFR (MDRD) 122.00 BUN/Creatinine Ratio 12.39 Glucose 103.8 D Calcium 8.99 Total Bilirubin 0.61 AST 28.2 ALT 24.4 Alkaline Phosphatase 101.8 Total Protein 6.78 Albumin 3.57 Globulin 3.21 Albumin/Globulin Ratio 1.11 Procalcitonin < 0.05 Vancomycin Trough 8.578 L Additional Comments Additional Comments: I have independently reviewed and interpreted the labs/EKGs/imaging ordered during this hospital stay. I have reviewed outside records that are available in our EMR that pertain to medical stay including imaging/notes/labs from previous visits. Active Medications Active Medications: Medications Generic Name Dose Route Start Last Admin Trade Name Robert PRN Reason Stop Dose Admin Acetaminophen 650 mg 07/27/24 15:49 Acetaminophen 325 Mg Tablet PO Q4H PRN Mild Pain Hydrocodone Bitart/Acetaminophen 1 tab 07/27/24 15:49 07/28/24 22:35 Hydrocodone Bit/Acetaminophen 5/325 Mg Tablet PO 1 tab Q6HR PRN Administration MODERATE PAIN VANCOMYCIN/WATER FOR INJ (PEG) 1.25 gm in 250 mls @ 250 mls/hr 07/28/24 13:30 07/29/24 05:18 Vancomycin 1.25 Gm/250 Ml Bag IV 07/31/24 13:29 250 mls/hr Q8HR [facility] Administration CEFTRIAXONE/D5W 1 GM PREMIX 1 gm in 50 mls @ 100 mls/hr 07/29/24 10:00 07/29/24 10:19 Rocephin 1 Gm/50 Ml D5w IV 08/01/24 09:59 100 mls/hr DAILY [facility] Administration Lisinopril 20 mg 07/27/24 18:30 07/29/24 08:35 Lisinopril 10 Mg Tablet PO 20 mg DAILY [facility] Administration Plan Plan: 1. Acute cellulitis of left lower extremity - Mildly improved. Failed outpatient abx. Recent MRSA positive. Cont vanc, pharmacy to dose. Add rocephin today. Pain control prn. Elevate. Recent CT and US of left lower ext. 2. Hypertension - Has not been taking medications, started back on lisinopril daily, will take some time to take effect. 3. Hypokalemia - Replaced DVT: Ambulation Review Statement Review Statement: I have personally discussed and reviewed the patient's visit/currently labs/imaging/decision making with Dr. Khoury, my supervising attending. Greater that 50 minutes spent with patient, 50% of the time spent with this patient was devoted to counseling and coordination of care.
[2024-07-30 04:59] LABS: BASOPHILS # (AUTO) 0.1 K/uL (0-0.2); BASOPHILS % (AUTO) 0.6 % (0.0-3.0); EOSINOPHILS # (AUTO) 0.7 K/ul (0.0-0.7); EOSINOPHILS % (AUTO) 7.3 % (0.0-7.0); HEMATOCRIT 46.4 % (42.0-52.0); HEMOGLOBIN 15.3 g/dl (14.0-18.0); IMMATURE GRANULOCYTE # (AUTO) 0.1 (0.0-1.0); IMMATURE GRANULOCYTE % (AUTO) 0.5 % (0.0-5.0); LYMPHOCYTES # (AUTO) 2.7 K/uL (0.60-3.4); LYMPHOCYTES % (AUTO) 27.7 (10.0-50.0); MEAN CORPUSCULAR HEMOGLOBIN 30.1 pg (27.0-31.0); MEAN CORPUSCULAR VOLUME 91.2 fl (80.0-94.0); MONOCYTES % (AUTO) 10.6 (0-10); NEUTROPHILS # (AUTO) 5.1 K/ul (2.0-6.9); NEUTROPHILS % (AUTO) 53.3 % (42.2-75.2); PLATELET COUNT 264 10^3/uL (140-440); RDW COEFFICIENT OF VARIATION 12.9 % (11.6-14.8); RED BLOOD COUNT 5.09 10^6/ul (4.70-6.10)
[2024-07-30 05:10] LABS: ALANINE AMINOTRANSFERASE 39.2 U/L (0-50); ALBUMIN 3.6 g/dL (3.5-5.0); ALKALINE PHOSPHATASE 98.2 U/L (38-126); ASPARTATE AMINO TRANSFERASE 54.7 U/L (17-59); BILIRUBIN,TOTAL 0.36 mg/dL (0.2-1.3); BLOOD UREA NITROGEN 8.5 mg/dL (9-20); CALCIUM 9.08 mg/dL (8.4-10.2); CARBON DIOXIDE 22.4 mmol/L (22-30.0); CHLORIDE 106.7 mmol/L (98-107); CREATININE 0.71 mg/dL (0.60-1.10); POTASSIUM 4.05 mmol/L (3.5-5.1); SODIUM 137.5 mmol/L (134.5-145); TOTAL PROTEIN 6.67 g/dL (6.3-8.2)
--- NOTE | 2024-07-30 09:05 | DCSUM ---
Admission Date Admission Date: 07/27/24 Discharge Date Discharge Date: 07/30/24 Admission Diagnosis Admission Diagnosis: 1. Acute cellulitis of left lower extremity - Failed outpatient abx. Recent MRSA positive. Cont vanc, pharmacy to dose. Pain control prn. Elevate. Recent CT and US of left lower ext. 2. Hypertension - Has not been taking medications Discharge Diagnosis Discharge Diagnosis: 1. Acute cellulitis of left lower extremity - Mildly improved. Failed outpatient abx. Recent MRSA positive. Cont vanc, pharmacy to dose. Add rocephin today. Pain control prn. Elevate. Recent CT and US of left lower ext. 2. Hypertension - Has not been taking medications, started back on lisinopril daily, will take some time to take effect. 3. Hypokalemia - Replaced Hospital Provider Hospital Provider: LINWOOD PASCUAL PA-C, [facility] Summary of History and Physical Summary of History and Physical: Patient is a 44 year old with pmhx of hypertension who presents for worsening redness and swelling of left lower ext. Patient was seen on 07/24 in the ER for same thing. He had a CT consistent with cellulitis, and US showed no DVT. He was given oral antibiotics which he took. He states it was feeling better but it gets worse if he gets up on it. He noticed redness and pain worsened today. In ER had labs with unremarkable findings. He was given vanc and clinda. He does have hx in the past. No open wounds currently. No hx of diabetes. Patient admitted to med surg for failed outpatient antibiotics for cellulitis. Hospital Course Subjective: Treated LLE cellulitis initially with vancomycin due to recent MRSA positive. Showed mild improvement. Rocephin added yesterday. Patient reporting great improvement to redness, swelling, and pain today. Sent Rx for bactrim to cover MRSA component. Patient has not been taking home medications for hypertension due to cost. Started back on lisinopril daily and sent in Rx. Will need to be followed by PCP. Appearance: Pleasant, No Apparent Distress and Alert HEENT: MMM and Supple CVS: No Murmur Abdomen: Soft and Non-Tender Respiratory: No Dyspnea Extremities: No Edema and Other (mild erythema to top of L foot, improving; mild swelling) Vital Signs: Most Recent Vital Signs Temperature 97.3 F L 07/30/24 05:05 Temperature Source Temporal Artery Scan 07/30/24 05:05 Temperature Source Oral 07/27/24 14:02 Pulse Rate 84 07/30/24 05:05 Respiratory Rate 18 07/30/24 05:05 Blood Pressure 110/71 07/30/24 05:05 Blood Pressure Mean 84 07/30/24 05:05 Blood Pressure Left Arm 171/122 07/27/24 16:18 Blood Pressure Location Left Arm 07/30/24 05:05 Blood Pressure Position Supine 07/30/24 05:05 O2 Sat by Pulse Oximetry 99 07/30/24 05:05 Oxygen Delivery Method Room Air 07/30/24 05:05 Height 5 ft 9.5 in 07/27/24 16:18 Weight 73.2 kg 07/27/24 16:18 Imaging: Date of Service: 07/24/24 EXAM: CT OF THE LEFT LOWER EXTREMITY WITH INTRAVENOUS CONTRAST FINDINGS: There is subcutaneous edema and ill-defined subcutaneous fluid anteriorly in a pretibial location throughout the entire calf with edema most pronounced extending more medially and laterally through the mid to distal calf in keeping with history of cellulitis. Marked soft tissue swelling with confluent edema ill-defined fluid anterolaterally through the distal calf and ankle with extension along the dorsal to lateral aspect of the midfoot and forefoot. Deep soft tissue wound, discrete drainable abscess or deep soft tissue gas identified at this time. No evidence of acute osteomyelitis. No acute fracture or dislocation. Minimal degenerative spurring with preservation of the visualized joint spaces. Edema along Kager's fat pad. Discrete enhancing soft tissue mass. Small well corticated ossification/spur along the medial malleolus related to old trauma/enthesopathy and extending along the tibial attachment the flexor retinaculum posterior at that level. Limited assessment of the blood vessels is grossly unremarkable on this non angiographic study. Minimal lateral tilt of the patella. No popliteal cyst. IMPRESSION: Soft tissue swelling throughout the calf through the ankle and foot is nonspecific but in keeping with history of cellulitis as detailed above. No deep soft tissue ulcer, drainable fluid collection or deep soft tissue gas at this time. Follow-up imaging with MRI can be considered in the setting of worsening symptoms. No evidence of acute osteomyelitis or acute fracture. Additional chronic findings as detailed above. Date of Service: 07/24/24 EXAM: LEFT LOWER EXTREMITY DEEP VENOUS ULTRASOUND WITH DOPPLER IMAGING FINDINGS: LEFT LOWER EXTREMITY: Common Femoral Vein: Normal compression. Normal flow on color Doppler images. Normal response to augmentation. Deep Femoral Vein: Normal compression. Normal flow on color Doppler images. Normal response to augmentation. Superficial Femoral Vein: Normal compression. Normal flow on color Doppler images. Normal response to augmentation. Popliteal Vein: Normal compression. Normal flow on color Doppler images. Normal response to augmentation. Peroneal Vein: Normal compression. Normal flow on color Doppler images. Posterior Tibial Vein: Normal compression. Normal flow on color Doppler images. Anterior Tibial Vein: Normal compression. Normal flow on color Doppler images. Greater Saphenous Vein (Superficial): Normal compression Other: None IMPRESSION: - No deep venous thrombosis in the left lower extremity. - No superficial thrombophlebitis in the left lower extremity. Lab Results Last 24 Hours: 07/30/24 04:50 WBC 9.60 RBC 5.09 Hgb 15.3 Hct 46.4 MCV 91.2 MCH 30.1 MCHC 33.0 RDW Coeff of Mark 12.9 Plt Count 264 Immature Gran % (Auto) 0.5 Neut % (Auto) 53.3 Lymph % (Auto) 27.7 [place] % (Auto) 10.6 H Eos % (Auto) 7.3 H Baso % (Auto) 0.6 Neut # (Auto) 5.1 Lymph # (Auto) 2.7 [place] # (Auto) 1.0 Eos # (Auto) 0.7 Baso # (Auto) 0.1 Immature Gran # (Auto) 0.1 Sodium 137.5 Potassium 4.05 Chloride 106.7 Carbon Dioxide 22.4 Anion Gap 12.45 BUN 8.5 L Creatinine 0.71 Estimated GFR (MDRD) 122.00 BUN/Creatinine Ratio 11.97 Glucose 100.0 Calcium 9.08 Total Bilirubin 0.36 AST 54.7 D ALT 39.2 Alkaline Phosphatase 98.2 Total Protein 6.67 Albumin 3.60 Globulin 3.07 Albumin/Globulin Ratio 1.17 Vancomycin Trough 14.386 D Discharge Instructions Discharge Planning: Discharge Planning > 40 minutes If patient is discharged with left ventricular systolic dysfunction: NA Discharged with a beta kendra? [] If no, why not? [] Discharged with an vi/arb? [] If no, why not? [] Diagnosis: Cellulitis Diet: Cardiac/Low salt Activity: as tolerated Medications: Juanis Follow-up with PCP this week Discharge Medications: Medications at Discharge (Home Meds & RX) albuterol sulfate 90 mcg/actuation aerosol inhaler (Ventolin HFA) 2 puff inhalation QID PRN shortness of breath or wheezing #8.5 grams 01/20/24 ciprofloxacin HCl 500 mg tablet 500 mg PO Q8H #21 tabs 07/24/24 doxycycline hyclate 100 mg capsule 100 mg PO BID #20 caps 07/24/24 ondansetron 4 mg disintegrating tablet 4 mg PO Q8H PRN nausea and vomiting #30 tabs 07/24/24 amlodipine 5 mg tablet 5 mg PO QAM 07/27/24 lisinopril 20 mg-hydrochlorothiazide 25 mg tablet 1 tab PO DAILY 07/27/24 metoprolol succinate 25 mg tablet,extended release 24 hr 25 mg PO BEDTIME 07/27/24 Discharge Plan Discharge Discharge Orders: Discharge Patient (ONCE); Ordered 07/30/24 Ordered By: VINCE ACUÑA Activity Restrictions/Additional Instructions: Diagnosis: Cellulitis Diet: Cardiac/Low salt Activity: as tolerated Medications: Juanis Follow-up with PCP this week Instructions: Cellulitis (GEN) Prescriptions: New sulfamethoxazole-trimethoprim [Bactrim DS] 800-160 mg tablet 1 tab PO BID 3 Days Qty: 6 0RF lisinopril 20 mg tablet 20 mg PO DAILY Qty: 30 0RF hydrocodone-acetaminophen 5-325 mg Tablet 1 tab PO Q6HR PRN (Reason: pain) Qty: 10 0RF Discontinued albuterol sulfate [Ventolin HFA] 90 mcg/actuation HFA aerosol inhaler 2 puff inhalation QID PRN (Reason: shortness of breath or wheezing) Qty: 8.5 0RF amlodipine 5 mg tablet 5 mg PO QAM Rx Instructions: Pt reports not taking as of 07/27, states his BP is not elevated lisinopril-hydrochlorothiazide 20-25 mg tablet 1 tab PO DAILY Rx Instructions: Pt reports he is not taking as of 07/27/24, states his BP is not elevated at home metoprolol succinate 25 mg tablet extended release 24 hr 25 mg PO BEDTIME Rx Instructions: Pt states he is not taking as of 07/27/24, states his BP is not elevated at home doxycycline hyclate 100 mg capsule 100 mg PO BID Qty: 20 0RF ciprofloxacin HCl 500 mg tablet 500 mg PO Q8H Qty: 21 0RF ondansetron 4 mg tablet,disintegrating 4 mg PO Q8H PRN (Reason: nausea and vomiting) Qty: 30 0RF Did you review [place] [employer] for ALL controlled substances?: No Discussed opioids are addictive and Narcan is available by prescription or from pharmacy.: No Condition: Stable
[2024-07-30 09:53] VITALS: BP 141/98; PULSE 70; RESP 16; TEMP 97.4
== END 2024-07-30 10:05 | disposition home or self-care (01) ==
LOC: ED 13:53 → MEDSURG B 13:53
PROVIDERS: ADMIT Hospitalist; ATTEND Physician Assistant